=== PATIENT | male | born 1995 | race African-American/Black ===

== ENCOUNTER 2016-06-17 21:24 | Emergency (ER) | payer BC ==
[~2016-06-17] VITALS: Ht 177.8 cm; Wt 77.3 kg
[2016-06-17 22:47] LABS: EOSINOPHIL (%) 0.1 % (0-5); HEMATOCRIT 47.4 % (38.0-50.0); IMMATURE GRANULOCYTE (%) 0.8 % (0.0-0.7); IMMATURE GRANULOCYTE COUNT 0.1 K/uL; INSTRUMENT ABS NEUTROPHIL CT 13.8 K/uL; MCH 28.4 PG (29.0-34.0); MCHC 32.9 G/DL (30.0-36.0); MCV 86.2 FL (86-99); MEAN PLAT.VOLUME 8.4 uM^3 (9.0-12.4); MONOCYTE (%) 6.2 % (3-12); MONOCYTE COUNT 1.1 K/uL (0-0.8); NEUTROPHIL (%) 81.2 % (45-76); NEUTROPHIL COUNT 13.8 K/uL (1.8-6.4); PLATELET COUNT 266 K/uL (156-360); RBC DIS.WIDTH-CV 13.4 % (11.8-14.6); RBC DIS.WIDTH-SD 42.8 % (39-53)
[2016-06-17 23:20] LABS: ADD MEDTOX COMMENT Y; AMPHETAMINE NEGATIVE (500 ng/mL); BARBITURATES NEGATIVE (200 ng/mL); BENZODIAZEPINES NEGATIVE (150 ng/mL); COCAINE PRESUMPTIVE POSITIVE (150 ng/mL); INTERNAL CONTROLS VALID? YES; METHADONE NEGATIVE (200 ng/mL); METHAMPHETAMINE NEGATIVE (500 ng/mL); OPIATES (MORPHINE) NEGATIVE (100 ng/mL); OXYCODONE NEGATIVE (100 ng/mL); PHENCYCLIDINE NEGATIVE (25 ng/mL); PROPOXYPHENE NEGATIVE (300 ng/mL); THC CANNABINOIDS PRESUMPTIVE POSITIVE (50 ng/mL); TRICYCLIC ANTIDEPRESSANTS NEGATIVE (300 ng/mL)
[2016-06-17 23:24] LABS: ADD MIUA? YES; BILIRUBIN NEGATIVE; BLOOD NEGATIVE; COLOR YELLOW ((YELLOW)); GLUCOSE (STRIP) NEGATIVE; KETONES NEGATIVE; LEUKOCYTES NEGATIVE; NITRITE NEGATIVE; PROTEIN (STRIP) 100; UROBILINOGEN 0.2 MG/DL (0.2-1.0)
[2016-06-17 23:27] LABS: AMYLASE 36 IU/L (1-118); CHLORIDE 105 mEq/L (99-109); POTASSIUM 3.7 mEq/L (3.7-5.4); SODIUM 140 mEq/L (136-147)
[2016-06-17 23:29] LABS: GLUCOSE 96 mg/dL (70-99)
[2016-06-17 23:30] LABS: ANION GAP 18 MEQ/L (2-14)
[2016-06-17 23:32] LABS: SERUM ETHYL ALCOHOL < 10 mg/dL
[2016-06-17 23:33] LABS: GFR ESTIMATE (CALCULATED) > 59 mL/min/
[2016-06-17 23:34] LABS: UREA NITROGEN (BUN) 17 mg/dL (9-23)
[2016-06-17 23:35] LABS: BACTERIA RARE /HPF; EPITHELIAL CELLS NONE SEEN /HPF; GRANULAR CASTS 0-5 /LPF; HYALINE CASTS 0-5 /LPF; MUCUS TRACE /LPF; RED BLOOD CELLS 0-5 /HPF (0-5); UCUL ADDED? NO; WHITE BLOOD CELLS 0-5 /HPF (0-5)
[2016-06-17 23:36] LABS: LIPASE 10 U/L (1.0-51.0)
[2016-06-18] MEDS ORDERED: TRAMADOL HCL50 MG PO (01:07)
[2016-06-18 01:23] VITALS: BP 114/61
== END 2016-06-18 01:31 | disposition home or self-care (01) ==
LOC: EME 21:24
PROVIDERS: Emergency Medicine
DX: S00.431A Contusion of right ear, initial encounter (principal); S00.432A Contusion of left ear, initial encounter; S60.512A Abrasion of left hand, initial encounter; S80.212A Abrasion, left knee, initial encounter; T14.8 Other injury of unspecified body region; Y04.2XXA Assault by strike against or bumped into by another person, initial encounter; F14.10 Cocaine abuse, uncomplicated; F12.10 Cannabis abuse, uncomplicated; R11.0 Nausea; D72.829 Elevated white blood cell count, unspecified
CPT/HCPCS: 70450; 70486; 71260; 74177; 80048; 81003; 82150; 83690; 84999; 85025; 86850; 86900; 86901; 99281; 99284; G0480; J2405; J3010; J7030